=== PATIENT | female | born 1980 | race Caucasian/White ===

== ENCOUNTER 2025-03-19 01:26 | Emergency (ER) | payer BC ==
[~2025-03-19] VITALS: Ht 177.8 cm; Wt 91.0 kg
[2025-03-19 01:32] VITALS: O2SAT 99
[2025-03-19] MEDS: FAMOTIDINE 20MG/2ML VIAL IV ONE (02:25)
[2025-03-19] MEDS: ONDANSETRON HCL 4MG/2ML INJ IV ONE (02:25)
[2025-03-19] MEDS: SODIUM CHLORIDE 0.9% 1,000 ML IV ONE (02:26)
[2025-03-19 02:28] LABS: BASOPHILS % 0.8 % (0.0-2.0); EOSINOPHILS % 1.0 % (0.0-5.0); HEMATOCRIT. 37.0 % (36.0-48.0); HEMOGLOBIN. 12.2 g/dL (12.0-16.0); LYMPHOCYTES % 36.3 % (20.0-50.0); MEAN PLATELET VOLUME 7.9 fl (7.4-10.4); MONOCYTES % 9.5 % (2.0-8.0); NEUTROPHILS % 52.4 % (40.0-76.0); PLATELET 273 x1000/uL (130-400); RED BLOOD CELL COUNT 3.85 mill/uL (4.2-5.4); RED CELL DISTRIBUTION WIDTH 14.3 % (11.6-14.6)
[2025-03-19] MEDS: OXYCODONE HCL 10MG TABLET PO ONE (02:34)
[2025-03-19 03:02] LABS: CREATININE 0.7 mg/dL (0.6-1.0); ETHANOL BLOOD 30 mg/dL (<10); PROTEIN TOTAL 6.7 g/dL (6.0-8.3); UREA NITROGEN BLOOD 9 mg/dL (9-23)
[2025-03-19 03:04] LABS: ASPARTATE AMINOTRANSFERASE 144 IU/L (<34); BILIRUBIN DIRECT 0.1 mg/dL (<=3.0); BILIRUBIN TOTAL 0.4 mg/dL (0.1-1.0)
[2025-03-19 04:03] LABS: HCG SCREEN NEGATIVE
[2025-03-19 05:08] VITALS: BP 144/90; PULSE 68; RESP 19; TEMP 36.6; O2SAT 95
== END 2025-03-19 05:22 | disposition home or self-care (01) ==
LOC: ER 01:37 → CMPBEDREQ 08:57
DX: F11.23 Opioid dependence with withdrawal (principal); R11.2 Nausea with vomiting, unspecified; R51.9 Headache, unspecified; Z79.899 Other long term (current) drug therapy
CPT/HCPCS: 80076; 80048; 80320; 84703; 83690; 85025; 36415; 93005; 96361; 96374; 96375; 99284; J1308; J2405; J7030; G0480